=== PATIENT | female | born 2000 ===

== ENCOUNTER 2018-10-16 12:46 | Outpatient (CLI) | payer MEDICAID ==
[2018-10-16] MEDS ORDERED: LACTATED RINGERS 500 ML IV ONE (13:06)
[2018-10-16 13:48] VITALS: BP 118/72
[2018-10-16 14:29] LABS: Bacteria,Urine 2+ /HPF (Negative); Bilirubin,Urine NEG (Negative); Blood,Urine NEG (Negative); Color,Urine Yellow (Yellow); Mucus,Urine FEW /HPF; Protein,Urine <15 mg/dL mg/dL (Negative); Urobilinogen,Urine < 2.0 mg/dL (<2.0)
[2018-10-16 14:32] LABS: Hematocrit 39.5 % (30.3-42.9); Hemoglobin 13.6 gm/dl (10.1-14.3); Mean Corpuscular HGB Conc 35 % (30-34); Mean Corpuscular Volume 93 fl (79-97); Platelet Count 235 K/mm3 (140-440); Red Blood Count 4.25 M/mm3 (3.65-5.03); Red Cell Distribution Width 13.3 % (13.2-15.2)
[2018-10-16 14:48] LABS: Alanine Aminotransferase 17 units/L (7-56); Uric Acid 2.6 mg/dL (3.5-7.6)
== END 2018-10-16 14:05 | disposition left against medical advice (07) ==
LOC: TRG 12:46
PROVIDERS: ATTEND Obstetrics & Gynecology
DX: O47.03 False labor before 37 completed weeks of gestation, third trimester (principal); Z3A.31 31 weeks gestation of pregnancy
CPT/HCPCS: 36415; 59025; 81001; 82565; 83615; 84450; 84460; 84550; 85027

== ENCOUNTER 2018-12-25 03:24 | Inpatient (IN) | payer MEDICAID ==
[2018-12-25] MEDS ORDERED: MINERAL OIL PO PRN (04:57)
[2018-12-25] MEDS ORDERED: BRETHINE IVP PRN (04:57)
[2018-12-25] MEDS ORDERED: SUBLIMAZE IV PRN (04:57)
[2018-12-25] MEDS ORDERED: STADOL IV PRN (04:57)
[2018-12-25] MEDS ORDERED: NARCAN 0.4 MG/1 ML IV PRN ×2 (04:57→23:12)
[2018-12-25] MEDS ORDERED: ZOFRAN IV PRN ×2 (04:57→23:12)
[2018-12-25] MEDS ORDERED: CERVIDIL VG ONE (04:57)
[2018-12-25] MEDS ORDERED: XYLOCAINE 2% INFILTRATI ONE (04:57)
[2018-12-25] MEDS ORDERED: BRETHINE SUB-Q PRN (04:57)
[2018-12-25] MEDS ORDERED: PITOCin/NS 20 UNIT/1000ML DRIP 20 UNITS/1,000 ML BAG IV SCH ×2 (05:00→23:45)
[2018-12-25] MEDS ORDERED: PITOCin/NS 30 UNIT/500ML 30 UNITS/500 ML BAG IV SCH (05:00)
--- NOTE | 2018-12-25 05:58 | History and Physical Report ---
History of Present Illness Date of examination: 12/25/18 Date of admission: 12/25/18 04:43 Chief complaint: contractions History of present illness: Pt is a 18 year old female primigravida JEREMIAH 12/17/18 at 41w1d who presents with contractions. She was scheduled for induction tonight. She denies vaginal bleeding or leakage of fluid. She has had care at [facility] since 11 wks complicated by Rubella non-immune status, and recurrent UTI on suppression since 11/12/18. She is GBS negative. Past History Past Medical History: no pertinent history Past Surgical History: other (back cyst excision ) Family/Genetic History: none Social history: no significant social history - Obstetrical History Expected Date of Delivery: 12/17/18 Actual Gestation: 41 Week(s) 1 Day(s) : 1 Medications and Allergies Allergies Allergy/AdvReac Type Severity Reaction Status Date / Time No Known Allergies Allergy Unverified 10/16/18 13:05 Active Meds: Active Medications Butorphanol Tartrate (Stadol) 2 mg IV Q2H PRN PRN Reason: Pain , Severe (7-10) Ephedrine Sulfate (Ephedrine Sulfate) 10 mg IV Q2M PRN PRN Reason: Hypotension Fentanyl (Sublimaze) 100 mcg IV Q2H PRN PRN Reason: Labor Pain Oxytocin/Sodium Chloride (Pitocin/Ns 20 Unit/1000ml Drip) 20 units in 1,000 mls @ 125 mls/hr IV DIRECT PRAMOD Oxytocin/Sodium Chloride (Pitocin/Ns 30 Unit/500ml) 30 units in 500 mls @ 4 mls/hr IV TITR PRAMOD; Protocol Lactated Ringer's (Lactated Ringers) 1,000 mls @ 125 mls/hr IV DIRECT PRAMOD Mineral Oil (Mineral Oil) 30 ml PO QHS PRN PRN Reason: Constipation Naloxone HCl (Narcan 0.4 Mg/1 Ml) 0.1 mg IV Q2MIN PRN PRN Reason: Res Rate </= 8 or 02 SAT < 92% Ondansetron HCl (Zofran) 4 mg IV Q8H PRN PRN Reason: Nausea And Vomiting Terbutaline Sulfate (Brethine) 0.25 mg SUB-Q ONCE PRN PRN Reason: Hyperstimulation/Hypertonicity Terbutaline Sulfate (Brethine) 0.25 mg IVP ONCE PRN PRN Reason: Hyperstimulation/Hypertonicity Review of Systems All systems: negative - Vital Signs Vital signs: Vital Signs Pulse BP 99 H 126/92 12/25/18 03:37 12/25/18 03:37 Temp Pulse Resp BP Pulse Ox 99 H 126/92 12/25/18 03:37 12/25/18 03:37 - Physical Exam Breasts: Positive: deferred Cardiovascular: Regular rate Lungs: Positive: Clear to auscultation Abdomen: Positive: soft (obese, gravid ) Genitourinary (Female): Positive: normal external genitalia Uterus: Positive: enlarged (gravid ) Extremities: Positive: normal - Obstetrical FHR: auscultation normal Uterine Contraction Monitor Mode: External Cervical Dilatation: 0 Uterine Contraction Pattern: Irregular Uterine Tone Measurement Phase: Resting Uterine Contraction Intensity: Mild Results All other labs normal. Assessment and Plan A: IUP at 41w1d GBS Negative Rubella Non-Immune H/o recurrent UTI on suppression Obesity P: Admit pt for induction Routine intrapartum care
[2018-12-25 06:56] LABS: Hematocrit 35.2 % (30.3-42.9); Hemoglobin 12.4 gm/dl (10.1-14.3); Mean Corpuscular HGB Conc 35 % (30-34); Mean Corpuscular Volume 95 fl (79-97); Platelet Count 194 K/mm3 (140-440); Red Blood Count 3.72 M/mm3 (3.65-5.03); Red Cell Distribution Width 14.4 % (13.2-15.2)
[2018-12-25] MEDS: LACTATED RINGERS 1,000 ML IV SCH ×4 (18:18→23:12)
[2018-12-25] MEDS ORDERED: NARCAN 2 MG/2 ML IV PRN (19:52)
--- NOTE | 2018-12-25 19:54 | Anesthesia Consultation ---
Anesthesia Consult and Med Hx Date of service: 12/25/18 - Airway Anesthetic Teeth Evaluation: Good ROM Head & Neck: Adequate Mental/Hyoid Distance: Adequate Mallampati Class: Class II Intubation Access Assessment: Probably Good - Pulmonary Exam CTA: Yes - Cardiac Exam Cardiac Exam: RRR - Pre-Operative Health Status ASA Pre-Surgery Classification: ASA2 Proposed Anesthetic Plan: Epidural, Spinal - Pulmonary Hx Smoking: No Hx Asthma: No Hx Respiratory Symptoms: No SOB: No COPD: No Home Oxygen Therapy: No Hx Pneumonia: No Hx Sleep Apnea: No - Cardiovascular System Hx Hypertension: No Hx Coronary Artery Disease: No Hx Heart Attack/AMI: No Hx Angina: No Hx Percutaneous Transluminal Coronary Angioplasty (PTCA): No Hx Cardia Arrhythmia: No Hx Pacemaker: No Hx Internal Defibrillator: No Hx Valvular Heart Disease: No Hx Heart Murmur: No Hx Peripheral Vascular Disease: No - Central Nervous System Hx Neuromuscular Disorder: No Hx Seizures: No CVA: No Hx Back Pain: Yes Hx Psychiatric Problems: No - Gastrointestinal Hx Ulcer: No Hx Gastroesophageal Reflux Disease: Yes - Endocrine Hx Renal Disease: No Hx End Stage Renal Disease: No Hx Cirrhosis: No Hx Liver Disease: No Hx Insulin Dependent Diabetes: No Hx Non-Insulin Dependent Diabetes: No Hx Thyroid Disease: No Hx Hypothyroidism: No Hx Hyperthyroidism: No - Hematic Hx Anemia: No Hx Sickle Cell Disease: No - Other Systems Hx Alcohol Use: No Hx Substance Use: No Hx Cancer: No Hx Obesity: No
--- NOTE | 2018-12-25 19:56 | Post Anesthesia Evaluation ---
- Post Anesthesia Evaluation Patient Participated: Yes Airway Patent: Yes Stable Respiratory Function: Yes Nausea/Vomiting: No Temp > 96.8F: Yes Pain Manageable: Yes Adequeate Hydration: Yes Anesthesia Complications: No Block Receding Appropriately: Yes Patient on Ventilator: No
--- NOTE | 2018-12-25 19:56 | Anesthesia Day of Surgery ---
Anesthesia Day of Surgery - Day of Surgery Patient Examined: Yes Patient H&P Reviewed: Yes Patient is NPO: Yes Beta Blockers: No Cardiac Clearance: No Pulmonary Clearance: No Reji's Test: N/A
[2018-12-25] MEDS ORDERED: fentaNYL-BUPIV 2 MCG/ML-0.125% 200 MCG/100 ML BAG EPIDURAL SCH (20:00)
--- NOTE | 2018-12-25 21:49 | Event Note ---
Date: 12/25/18 Late entry. Pt complete at 2105 pm. Decrease epidural to half strength. Continue routine intrapartum care. Closely monitor maternal and status.
[2018-12-25] MEDS ORDERED: AMPICILLIN/NS 2 GM/100 ML 2 GM/100 ML BAG IV ONE ×2 (22:24→22:28)
[2018-12-25] MEDS ORDERED: PEPCID IV ONE ×2 (23:09→23:13)
[2018-12-25] MEDS ORDERED: REGLAN ONE (23:09)
[2018-12-25] MEDS ORDERED: BICITRA ONE (23:09)
[2018-12-25] MEDS ORDERED: DILAUDID IV PRN (23:12)
[2018-12-25] MEDS ORDERED: BENADRYL IV PRN (23:12)
[2018-12-25] MEDS ORDERED: PHENERGAN PO PRN (23:12)
[2018-12-25] MEDS ORDERED: PHENERGAN PR PRN (23:12)
[2018-12-25] MEDS ORDERED: REGLAN IV ONE (23:13)
[2018-12-25] MEDS ORDERED: BICITRA PO ONE (23:13)
--- NOTE | 2018-12-25 23:13 | Event Note ---
Date: 12/25/18 Pt has been complete for 1.5 hours with no further descent passively or with maternal expulsive efforts. FHTs 170s. Plan to proceed with section.
[2018-12-25] MEDS ORDERED: MARCAINE 0.5% INFILTRATI ONE (23:19)
[2018-12-25] MEDS ORDERED: SUBLIMAZE ONE (23:24)
[2018-12-25] MEDS ORDERED: WATER FOR IRRIG STERILE IR ONE (23:30)
[2018-12-25] MEDS ORDERED: NACL 0.9% IR ONE (23:30)
[2018-12-25] MEDS ORDERED: XYLOCAINE MPF 2% ONE ×2 (23:32→23:36)
[2018-12-25] MEDS ORDERED: ANCEF/STERILE WATER 2 GM/20 ML 2 GM/20 ML SYRINGE IV NR (23:45)
[2018-12-25] MEDS ORDERED: SODIUM CHLORIDE FLUSH SYRINGE 10 ML IV PRN (23:45)
[2018-12-25] MEDS ORDERED: LACTATED RINGERS 1,000 ML IV SCH (23:45)
[2018-12-26] MEDS ORDERED: TORADOL ONE (00:04)
[2018-12-26] MEDS ORDERED: VERSED ONE ×2 (00:11)
[2018-12-26] MEDS ORDERED: SUBLIMAZE ONE (00:22)
[2018-12-26] MEDS ORDERED: LACTATED RINGERS 1,000 ML ONE (00:55)
--- NOTE | 2018-12-26 01:05 | Procedure Note ---
OB Delivery Note - Delivery Date of Delivery: 12/26/18 Surgeon: MITZI LEWIS Estimated blood loss: 1000cc - Section Preop diagnosis: arrest of descent, other ( tachycardia) Postop diagnosis: same section procedure: section, primary low transverse Disposition: PACU Narrative: Please see delivery note - A at 1 minute: 7 at 5 minutes: 9 Infant Gender: Female (3122g (6lb 14 oz) @ 0000 am)
--- NOTE | 2018-12-26 01:12 | Operative Report ---
Operative Report Operative Report: Date of procedure: December 26, 2018 Preoperative diagnosis: 1) IUP at 41w2d 2) Tachycardia 3) Arrest of Desce nt 4) Obesity Postoperative diagnosis: Same Procedure: Primary low transverse section Surgeon: Amy Plummer M.D. Anesthesia: Regional Findings: 1) Viable female , Apgars[ 7 and 9, weight 3122g, (6 lb 14 oz) in cephalic presentation 2) Normal-appearing uterus ovaries and tubes Estimated blood loss: 1000 mL IV fluids: 1400 mL Urine output: 100 mL, blood tinged at the end of the procedure Drains: Jiménez to gravity Specimens: Placenta to pathology Complications:None. Counts correct x 3 Disposition: Stable to PACU Indication for procedure: Pt is a 18 year old primigravida at 41w2d who was admitted for induction of labor and progressed to complete dilation, but did not descend beyond 0 station in the setting of baseline 175-180s. The decision was made to proceed to delivery. Operation in detail: After the risks, benefits, alternatives and complications were explained to the patient she gave informed consent for the procedure. She was subsequently taken to the operating room where regional anesthesia was noted to be adequate. She was subsequently placed in the dorsal supine position with leftward tilt and prepped and draped in a normal sterile fashion. heart tones were noted to be in the 175s prior to incision. A timeout was performed. A Pfannenstiel skin incision was made with the knife and carried down to the layer of the fascia with the Bovie. The fascia was incised in the midline and the fascial incision was extended bilaterally with the Bovie. Attention was then turned to the superior aspect of the incision which was grasped with two Kochers, tented up, and dissected off the rectus muscles. Attention was then turned to the inferior aspect of the incision which was grasped with two Kochers, tented up and dissected off the rectus muscles. The rectus muscles were then in the midline and partially transected for adequate visualization. The peritoneum was then entered bluntly. The peritoneal incision was extended with good visualization of the bladder. The peritoneal incision was then stretched. An Cas self-retaining retractor was placed for visualization. The bladder blade was placed. The vesicouterine peritoneum was grasped with smooth pickups and incised with Metzenbaum scissors. Metzenbaum scissors were used to extend the incision bilaterally. The bladder flap was then created digitally and the bladder blade was replaced. A transverse incision was made in the lower uterine segment with a knife and extended bilaterally with the bandage scissors. The head was delivered with some difficulty with the assistance of a vaginal hand followed by shoulders and body. was bulb suctioned at delivery. The cord was clamped and cut and the was handed to NICU staff in attendance. Cord blood was collected. The placenta was then delivered manually. The uterus was then exteriorized and cleared of all clots and debris. The hysterotomy was then reapproximated with 0 Vicryl in a running locked fashion. A second layer of the same suture was used in imbricating fashion. An extension into the lower uterine segment on the left side was repaired with 2-0 Vicryl in a running locked fashion. The hysterotomy was inspected and hemostasis was noted. The Cas self-retaining retractor was removed. The gutters were irrigated and cleared of all clots and debris. The hysterotomy was again inspected and noted to be hemostatic. Surgicel was placed over the hysterotomy. The peritoneum was reapproximated with 2-0 Vicryl in a running fashion incorporating the rectus muscles. The rectus muscles were covered with Surgicel. The fascia was reapproximated with 0 Vicryl in a running fashion. The subcutaneous tissue was reapproximated with 3-0 Vicryl in a running fashion. The skin was reapproximated with 4-0 Vicryl in a subcuticular fashion. The incision was then covered with steri strips and a pressure dressing. The procedure was then ended. The patient tolerated the procedure well and was taken to the PACU in stable condition. All instrument, lap, and needle counts were correct 3. This patient should not labor in the future.
[2018-12-26] MEDS ORDERED: AMPICILLIN/NS 1 GM/50 ML 1 GM/50 ML BAG IV SCH (02:00)
[2018-12-26] MEDS: DILAUDID IV PRN ×2 (02:12→08:46)
[2018-12-26] MEDS ORDERED: SODIUM CHLORIDE FLUSH SYRINGE 10 ML IV PRN (02:58)
[2018-12-26] MEDS ORDERED: TUCKS PAD TP PRN (02:58)
[2018-12-26] MEDS ORDERED: D5LR 1,000 ML IV SCH (02:58)
[2018-12-26] MEDS ORDERED: IBUPROFEN PO PRN (02:58)
[2018-12-26] MEDS ORDERED: LANSINOH TP PRN (02:58)
[2018-12-26] MEDS ORDERED: TYLENOL PO PRN (02:58)
[2018-12-26] MEDS ORDERED: PITOCin/NS 20 UNIT/1000ML DRIP 20 UNITS/1,000 ML BAG IV SCH (02:58)
[2018-12-26] MEDS ORDERED: ZOFRAN IV PRN (02:58)
[2018-12-26] MEDS ORDERED: MILK OF MAGNESIA PO PRN (02:58)
[2018-12-26] MEDS ORDERED: MYLICON PO PRN (02:58)
[2018-12-26] MEDS ORDERED: NARCAN 0.4 MG/1 ML IV PRN (02:58)
[2018-12-26] MEDS: TORADOL IV PRN ×2 (06:36→12:18)
[2018-12-26] MEDS: ANCEF/NS 1 GM/50 ML 1 GM/50 ML BAG IV SCH ×2 (07:56→16:15)
[2018-12-26] MEDS ORDERED: DILAUDID ONE (08:44)
[2018-12-26 13:36] LABS: Hematocrit 20.8 % (30.3-42.9); Hemoglobin 7.2 gm/dl (10.1-14.3)
[2018-12-26] MEDS: PERCOCET 5/325 PO PRN ×3 (14:03→22:20)
[2018-12-26] MEDS ORDERED: NACL 0.9% 500 ML 500 ML IV NR (17:06)
[2018-12-27] MEDS ORDERED: M-M-R II VACCINE SUB-Q ONE (01:14)
[2018-12-27] MEDS: MOTRIN PO PRN ×3 (05:32→21:23)
[2018-12-27 05:51] LABS: Hematocrit 25.5 % (30.3-42.9); Hemoglobin 8.8 gm/dl (10.1-14.3)
[2018-12-27] MEDS ORDERED: BOOSTRIX IM ONE (06:00)
[2018-12-27] MEDS: PERCOCET 5/325 PO PRN (09:34)
--- NOTE | 2018-12-27 11:03 | Progress Note ---
Assessment and Plan A/P POD 1 primary csec pain controlled continue care Subjective - Subjective Date of service: 12/27/18 Principal diagnosis: s/p primary csec Patient reports: appetite normal, voiding normally, pain well controlled, flatus, ambulating normally : doing well Objective - Vital Signs Latest vital signs: Vital Signs Temp Pulse Resp BP BP Pulse Ox 12/27/18 08:24 98.9 F 108 H 20 103/57 96 12/27/18 06:28 18 12/27/18 05:32 18 12/27/18 00:32 98.8 F 110 H 20 97/52 96 12/26/18 23:36 98.4 F 117 H 16 107/57 97 12/26/18 23:20 16 12/26/18 23:06 98.6 F 119 H 18 108/66 98 12/26/18 22:36 98.6 F 116 H 18 113/61 99 12/26/18 22:21 99.5 F 124 H 18 102/68 96 12/26/18 22:20 18 12/26/18 21:15 98.6 F 123 H 18 120/69 97 12/26/18 21:06 98.5 F 108 H 16 112/68 97 12/26/18 20:36 98.6 F 109 H 16 111/62 98 12/26/18 20:06 99 F 111 H 16 110/61 98 12/26/18 19:36 98.3 F 108 H 16 110/71 99 12/26/18 19:35 18 12/26/18 19:06 98.2 F 112 H 18 105/69 12/26/18 18:57 98.1 F 115 H 18 107/67 12/26/18 18:51 98.7 F 117 H 20 114/72 12/26/18 16:08 99.6 F 123 H 20 108/52 97 12/26/18 13:01 99.0 F 126 H 111/61 95 12/26/18 12:52 111/61 12/26/18 12:13 100.7 F H 138 H 24 116/63 97 Intake and Output 12/26/18 12/27/18 12/27/18 23:59 07:59 15:59 Intake Total 610 490 Output Total 650 Balance -40 490 Intake: Oral 120 Intake, Free Water 240 240 Blood Product 250 250 Leukoreduced Red Blood 250 Cells Unit [id number] Leukoreduced Red Blood 0 250 Cells Unit [id number] Output: Urine 650 Void 650 Other: Total, Intake Amount 120 Total, Output Amount 250 # Voids Void 1 1 - Exam Breasts: Present: normal Cardiovascular: Present: Regular rate, Normal S1 Lungs: Present: Clear to auscultation, Normal air movement Abdomen: Present: normal appearance, soft, normal bowel sounds. Absent: distention, tenderness, guarding Uterus: Present: normal, firm, fundal height below umbilicus. Absent: bogginess, tenderness Extremities: Present: normal Deep Tendon Reflex Grade: Normal +2 Incision: Present: normal, dry, intact - Labs Labs: Abnormal lab results 12/25/18 12/26/18 12/27/18 Range/Units 06:40 13:11 05:32 Hgb 7.2 L D 8.8 L (10.1-14.3) gm/dl Hct 20.8 L D 25.5 L (30.3-42.9) % Crossmatch See Detail
[2018-12-27] MEDS: FEOSOL PO SCH ×2 (12:25→21:23)
[2018-12-28] MEDS: MOTRIN PO PRN ×3 (03:26→19:50)
[2018-12-28] MEDS: PERCOCET 5/325 PO PRN (05:56)
--- NOTE | 2018-12-28 06:56 | Progress Note ---
Assessment and Plan A/P POD 2 primary csec pain controlled continue care d/c home tomorrow Subjective - Subjective Date of service: 12/28/18 Principal diagnosis: s/p primary csec Patient reports: appetite normal, voiding normally, pain well controlled, flatus, ambulating normally [place]: doing well Objective - Vital Signs Latest vital signs: Vital Signs Temp Pulse Resp BP BP Pulse Ox 12/28/18 05:56 18 12/28/18 03:26 18 12/28/18 00:30 98.6 F 88 18 110/76 12/27/18 21:23 18 12/27/18 20:46 98.0 F 110 H 18 105/67 97 12/27/18 16:49 98.6 F 110 H 20 115/59 97 12/27/18 08:24 98.9 F 108 H 20 103/57 96 Intake and Output 12/27/18 12/27/18 12/28/18 15:59 23:59 07:59 Intake Total 480 120 300 Balance 480 120 300 Intake: Oral 480 120 Intake, Free Water 300 Other: Total, Intake Amount 240 120 # Voids Void 1 1 - Exam Breasts: Present: normal Cardiovascular: Present: Regular rate, Normal S1 Lungs: Present: Clear to auscultation, Normal air movement Abdomen: Present: normal appearance, soft, normal bowel sounds. Absent: distention, tenderness, guarding Vulva: both: normal Uterus: Present: normal, firm, fundal height below umbilicus. Absent: bogginess, tenderness Extremities: Present: normal Deep Tendon Reflex Grade: Normal +2 Incision: Present: normal, dry, intact
[2018-12-28] MEDS: FEOSOL PO SCH ×2 (09:53→21:42)
[2018-12-28] MEDS: KENALOG TP SCH ×2 (13:14→22:02)
[2018-12-29] MEDS: PERCOCET 5/325 PO PRN (00:51)
[2018-12-29] MEDS: MOTRIN PO PRN ×2 (06:14→12:22)
--- NOTE | 2018-12-29 08:26 | Progress Note ---
Assessment and Plan A/P POD 3 primary csec pain controlled d/c home today with f/u in 2 weeks Subjective - Subjective Date of service: 12/29/18 Principal diagnosis: s/p primary csec Patient reports: appetite normal, voiding normally, pain well controlled, flatus : doing well Objective - Vital Signs Latest vital signs: Vital Signs Temp Pulse Resp BP BP Pulse Ox 12/29/18 06:14 20 12/29/18 00:51 20 12/28/18 23:30 98.7 F 79 18 118/64 12/28/18 19:50 20 12/28/18 16:23 99.2 F 106 H 18 101/55 97 Intake and Output 12/28/18 12/29/18 12/29/18 23:59 07:59 15:59 Intake Total 720 800 Balance 720 800 Intake: Oral 480 200 Intake, Free Water 240 600 Other: Total, Intake Amount 480 200 # Voids Void 2 - Exam Breasts: Present: normal Cardiovascular: Present: Regular rate, Normal S1 Lungs: Present: Clear to auscultation, Normal air movement Abdomen: Present: normal appearance, soft, normal bowel sounds. Absent: distention, tenderness, guarding Uterus: Present: normal, firm, fundal height below umbilicus. Absent: bogginess, fundal height above umbilicus Extremities: Present: normal Deep Tendon Reflex Grade: Normal +2 Incision: Present: normal, dry, intact
--- NOTE | 2018-12-29 08:29 | Discharge Summary ---
Providers - Providers Date of Admission: 12/25/18 04:43 Date of discharge: 12/29/18 Attending physician: MITZI LEWIS Primary care physician: MITZI LEWIS Hospitalization Reason for admission: active labor Delivery: Procedure: section, primary low transverse Episiotomy: none Laceration: none Incision: normal, dry, intact Other procedures: none complications: none Discharge diagnosis: IUP at term delivered [place] baby: female Hospital course: Unremarkable hospital course. patient came in for contractions and sustained primary csec for tachy and arrest of descent. patient did well post op discharged home with f./u in 2 weeks after POD#3 Condition at discharge: Good Disposition: DC-01 TO HOME OR SELFCARE Plan - Discharge Medications Prescriptions: Ferrous Sulfate [Feosol 325 MG tab] 325 mg PO BID #60 tablet Ibuprofen [Motrin] 800 mg PO Q8HR PRN #30 tablet PRN Reason: Pain, Moderate (4-6) oxyCODONE /ACETAMINOPHEN [Percocet 5/325] 1 tab PO Q6HR PRN #40 tablet PRN Reason: Pain - Provider Discharge Summary Additional instructions: [] Smoking cessation referral if applicable(refer to patient education folder for contact #) [] Refer to [facility]'s [facility] Booklet Call your doctor immediately for: * Fever > 100.5 * Heavy vaginal bleeding ( >1 pad per hour) * Severe persistent headache * Shortness of breath * Reddened, hot, painful area to leg or breast * Drainage or odor from incision. * Keep incision clean and dry at all times and follow doctor's instructions regarding bathing/showering - Follow up plan Follow up: MITZI LEWIS MD [Primary Care Provider] - 7 Days Forms: [facility] Discharge Summary
[2018-12-29] MEDS ORDERED: CITRATE OF MAGNESIA PO NR (09:04)
[2018-12-29] MEDS: FEOSOL PO SCH (11:05)
[2018-12-29] MEDS: KENALOG TP SCH (11:05)
[2018-12-29 14:55] VITALS: BP 114/67
== END 2018-12-29 14:30 | disposition home or self-care (01) | DRG 765 ==
LOC: TRG 03:24 → LD 04:43 → OB 12-26 02:51
PROVIDERS: ADMIT Obstetrics & Gynecology; ATTEND Obstetrics & Gynecology
PROC: 10D00Z1 Extraction of Products of Conception, Low, Open Approach (ICD-10-PCS; principal; 2018-12-26)
PROC: 30233N1 Transfusion of Nonautologous Red Blood Cells into Peripheral Vein, Percutaneous Approach (ICD-10-PCS; 2018-12-26)
PROC: 3E0234Z Introduction of Serum, Toxoid and Vaccine into Muscle, Percutaneous Approach (ICD-10-PCS; 2018-12-27)
DX: O76 Abnormality in fetal heart rate and rhythm complicating labor and delivery (principal); D62 Acute posthemorrhagic anemia; O99.214 Obesity complicating childbirth; O99.62 Diseases of the digestive system complicating childbirth; E66.9 Obesity, unspecified; K21.9 Gastro-esophageal reflux disease without esophagitis; O62.1 Secondary uterine inertia; O90.81 Anemia of the puerperium; Z3A.41 41 weeks gestation of pregnancy; Z37.0 Single live birth; Z23 Encounter for immunization
CPT/HCPCS: 36415; 85014; 85018; 85027; 86592; 86850; 86900; 86901; 86920; 88307; 90715; G0378; J0290; J0595; J0690; J1170; J1200; J1885; J2250; J2405; J2590; J2765; J3010; J7040; J7120; J7121; P9016; Q0169